=== PATIENT | male | born 1950 | race Caucasian/White ===

== ENCOUNTER 2019-01-17 10:30 | Emergency (ER) | payer OTHER ==
[~2019-01-17] VITALS: Ht 175.3 cm; Wt 78.0 kg
[2019-01-17] MEDS ORDERED: PROTONIX40 MG (10:51)
[2019-01-17] MEDS ORDERED: KETO10TA2 PO (11:25)
== END 2019-01-17 11:27 | disposition home or self-care (01) ==
LOC: ER 10:30
DX: M25.561 Pain in right knee (principal)

== ENCOUNTER → 2020-05-23 | Outpatient (CLI) | payer OTHER ==
[~2020-05-23] MED LIST: KETO10TA2 PO; PROTONIX40 MG
== END | disposition home or self-care (01) ==
LOC: OFIC 805 09:15
PROVIDERS: ATTEND Otolaryngology
DX: R22.1 Localized swelling, mass and lump, neck (principal); H61.23 Impacted cerumen, bilateral; H90.3 Sensorineural hearing loss, bilateral